=== PATIENT | male | born 1995 | race American Indian/Alaskan Native ===

== ENCOUNTER 2017-07-09 17:29 | Emergency (ER) | payer SELFPAY ==
[2017-07-09] MEDS ORDERED: ZITHROMAX PO ONE (22:20)
[2017-07-09] MEDS ORDERED: XYLOCAINE 1% MPF 5 mL INFILTRATI ONE (22:20)
[2017-07-09] MEDS ORDERED: ROCEPHIN IM ONE (22:20)
--- NOTE | 2017-07-09 22:26 | Emergency Department Report ---
ED Male HPI - General Chief complaint: Urogenital-Male Stated complaint: STD CHECK UP Time Seen by Provider: 07/09/17 22:19 Source: patient Mode of arrival: Ambulatory Limitations: No Limitations - History of Present Illness Initial comments: pt is a 22 y/o aam with nmh hx who presents for std exposure pt endorses that he has bumps on his perineum after having unprotected sex 5 days ago pt endorse penile itching and tingling pt denies fever no chills n/v Onset/Timin -: days(s) Location: penis Radiation: none Severity: moderate Severity scale (0 -10): 3 Quality: other (itching burning ) Consistency: constant Improves with: none Worsens with: urination, palpation new sexual partner discharge, rash. denies: swelling, mass, urinary retention, blood in urine, dysuria, fever, nausea/vomiting, incontinence - Related Data Sexually active: Yes Previous Rx's Medication Instructions Recorded Last Taken Type Ibuprofen [Motrin] 800 mg PO Q8H PRN #20 tablet 10/22/14 Unknown Rx Doxycycline [Vibramycin CAP] 100 mg PO Q12HR #20 capsule 07/09/17 Unknown Rx Valacyclovir HCl [Valtrex] 1,000 mg PO BID #20 tab 07/09/17 Unknown Rx Allergies Allergy/AdvReac Type Severity Reaction Status Date / Time No Known Allergies Allergy Verified 07/09/17 17:57 ED Review of Systems ROS: Stated complaint: STD CHECK UP Other details as noted in HPI Constitutional: denies: chills, fever Eyes: denies: eye pain, eye discharge, vision change ENT: denies: ear pain, throat pain Respiratory: denies: cough, shortness of breath, wheezing Cardiovascular: denies: chest pain, palpitations Endocrine: no symptoms reported Gastrointestinal: denies: abdominal pain, nausea, diarrhea Genitourinary: other (rash and itching penile ). denies: testicular pain, testicular mass Musculoskeletal: denies: back pain, joint swelling, arthralgia Skin: denies: rash, lesions Neurological: denies: headache, weakness, paresthesias Psychiatric: denies: anxiety, depression Hematological/Lymphatic: denies: easy bleeding, easy bruising ED Past Medical Hx - Past Medical History Previous Medical History?: No - Surgical History Past Surgical History?: No - Social History Smoking Status: Never Smoker Substance Use Type: None - Medications Home Medications: Home Medications Medication Instructions Recorded Confirmed Last Taken Type Ibuprofen [Motrin] 800 mg PO Q8H PRN #20 tablet 10/22/14 Unknown Rx Doxycycline [Vibramycin CAP] 100 mg PO Q12HR #20 capsule 07/09/17 Unknown Rx Valacyclovir HCl [Valtrex] 1,000 mg PO BID #20 tab 07/09/17 Unknown Rx ED Physical Exam - General Limitations: No Limitations General appearance: alert, in no apparent distress - Head Head exam: Present: atraumatic, normocephalic - Eye Eye exam: Present: normal appearance - ENT ENT exam: Present: mucous membranes moist - Neck Neck exam: Present: normal inspection - Respiratory Respiratory exam: Present: normal lung sounds bilaterally. Absent: respiratory distress - Cardiovascular Cardiovascular Exam: Present: regular rate, normal rhythm. Absent: systolic murmur, diastolic murmur, rubs, gallop - GI/Abdominal GI/Abdominal exam: Present: soft, normal bowel sounds - Rectal Rectal exam: Present: other (papular rash ). Absent: hemorrhoids, tenderness - exam: Present: circumcision, other. Absent: testicular tenderness, urethral discharge, scrotal swelling, vertical testicular lie External exam: Present: normal external exam. Absent: erythema, swelling, lesions, lacerations, ecchymosis, bleeding - Extremities Exam Extremities exam: Present: normal inspection, full ROM, tenderness, normal capillary refill - Back Exam Back exam: Present: normal inspection - Neurological Exam Neurological exam: Present: alert, oriented X3 - Psychiatric Psychiatric exam: Present: normal affect, normal mood - Skin Skin exam: Present: warm, dry, intact, normal color. Absent: rash ED Course Vital Signs 07/09/17 17:57 Temperature 98 F Pulse Rate 62 Respiratory 18 Rate Blood Pressure 138/92 O2 Sat by Pulse 100 Oximetry ED Medical Decision Making - Medical Decision Making pt is a 22 y/o aam with nmh hx who presents for std exposure pt endorses that he has bumps on his perineum after having unprotected sex 5 days ago pt endorse penile itching and tingling pt denies fever no chills n/v exam: penis no rash no lesion no discharge no erythema no lymph, rectum small papular rash no open lesion mild erythema given symptom initiated after unprotected sexual contact will tx for STD exposure pt given rx. for valtrax 1gm po bid x 10 days will fill if rash persists past next 3 days , pt directed to presents to health depart for hiv screening pt verbalized agreement and understanding with discharge plan Critical care attestation.: If time is entered above; I have spent that time in minutes in the direct care of this critically ill patient, excluding procedure time. ED Disposition Clinical Impression: STD exposure Disposition: DC-01 TO HOME OR SELFCARE Is pt being admited?: No Does the pt Need Aspirin: No Condition: Good Instructions: Sexually Transmitted Diseases (ED) Additional Instructions: start valtrax if rash not resolved in 3 days or spreads prior, folow up with health department for hiv screening. Prescriptions: Doxycycline [Vibramycin CAP] 100 mg PO Q12HR #20 capsule Valacyclovir HCl [Valtrex] 1,000 mg PO BID #20 tab Referrals: PRIMARY CARE, [Primary Care Provider] - 3-5 Days Forms: Work/School Release Form(ED) Time of Disposition: 22:39
[2017-07-09] MEDS ORDERED: MOTRIN ONE (23:15)
[2017-07-09] MEDS ORDERED: MOTRIN PO ONE (23:48)
[2017-07-10 02:00] VITALS: BP 128/62
== END 2017-07-09 23:06 | disposition home or self-care (01) ==
LOC: ED 17:29
DX: N48.89 Other specified disorders of penis (principal); Z20.2 Contact with and (suspected) exposure to infections with a predominantly sexual mode of transmission
CPT/HCPCS: 99282; J0696

== ENCOUNTER 2017-07-10 09:54 | Emergency (ER) | payer SELFPAY ==
[2017-07-10] MEDS ORDERED: TYLENOL PO ONE (10:25)
[2017-07-10] MEDS ORDERED: TYLENOL ONE (10:29)
[2017-07-10 10:43] LABS: Bilirubin,Urine NEG (Negative); Blood,Urine NEG (Negative); Ketones,Urine NEG (Negative); Leukocyte Esterase,Urine NEG (Negative); Nitrite,Urine NEG (Negative); Protein,Urine <15 mg/dL mg/dL (Negative); Urobilinogen,Urine < 2.0 mg/dL (<2.0)
[2017-07-10 19:26] VITALS: BP 117/80
== END 2017-07-10 19:26 | disposition left against medical advice (07) ==
LOC: ED 09:54
DX: R10.30 Lower abdominal pain, unspecified (principal); Z53.21 Procedure and treatment not carried out due to patient leaving prior to being seen by health care provider
CPT/HCPCS: 81001

== ENCOUNTER 2018-06-12 00:14 | Emergency (ER) | payer SELFPAY ==
[2018-06-12 00:19] VITALS: BP 146/103
--- NOTE | 2018-06-12 03:53 | Emergency Department Report ---
ED Rash HPI - HPI Chief Complaint: Skin Rash Stated Complaint: RASH IN GROIN Time Seen by Provider: 06/12/18 03:23 Duration: 3 Days Location: Other (" I have jock it" ) Rash Symptoms: Yes Itching, No Facial Swelling, No Tongue/Oral Swelling, No Breathing Difficulties, No Choking Sensation, No Wheezing/Dyspnea, No Blistering , No Fever Severity: moderate ED Review of Systems ROS: Stated complaint: RASH IN GROIN Other details as noted in HPI Constitutional: denies: chills, fever Eyes: denies: eye pain, eye discharge, vision change ENT: denies: ear pain, throat pain Respiratory: denies: cough, shortness of breath, wheezing Cardiovascular: denies: chest pain, palpitations Endocrine: no symptoms reported Gastrointestinal: denies: abdominal pain, nausea, diarrhea Genitourinary: denies: urgency, dysuria Musculoskeletal: denies: back pain, joint swelling, arthralgia Skin: denies: rash, lesions Neurological: denies: weakness, numbness, paresthesias, abnormal gait, vertigo Psychiatric: denies: anxiety, depression Hematological/Lymphatic: denies: easy bleeding, easy bruising ED Past Medical Hx - Past Medical History Previous Medical History?: No - Surgical History Past Surgical History?: No - Social History Smoking Status: Never Smoker Substance Use Type: None - Medications Home Medications: Home Medications Medication Instructions Recorded Confirmed Last Taken Type Ibuprofen [Motrin] 800 mg PO Q8H PRN #20 tablet 10/22/14 Unknown Rx Doxycycline [Vibramycin CAP] 100 mg PO Q12HR #20 capsule 07/09/17 Unknown Rx Valacyclovir HCl [Valtrex] 1,000 mg PO BID #20 tab 07/09/17 Unknown Rx Terbinafine 1% [Lamisil At] 2 applicatio TP QDAY #1 tube 06/12/18 Unknown Rx diphenhydrAMINE [Benadryl CAP] 25 mg PO Q8HR PRN #30 capsule 06/12/18 Unknown Rx Rash Exam - Exam General: Vital signs noted. No distress. Alert and acting appropriately. HEENT: No Periorbital Edema, No Conjuctival Injection, No Chemosis, No Perioral Edema, No Tongue Edema, No Uvular Edema, No Compromised Airway, No Drooling Lungs: Yes Good Air Exchange, Yes Cough, Yes Labored Respirations, No Wheezes, No Ronchi, No Stridor, No Retractions, No Use of Accessory Muscles, No Other Abnormal Lung Sounds Heart: Yes Regular, No Murmur Skin: Yes Erythema, No Urticarial Rash, No Maculopapular Rash, No Morbilliform rash, No Bulla(e), No Excoriations, No Weeping, No Tenderness, No Edema, No Encrustations, No Other Other: Positive: Abdomen Normal, Neurologic Normal, Musculoskeletal Normal ED Course Vital Signs 06/12/18 00:18 Temperature 98.7 F Pulse Rate 100 H Respiratory 18 Rate Blood Pressure 146/103 O2 Sat by Pulse 95 Oximetry ED Medical Decision Making - Radiology Data Radiology results: pending, report reviewed - Medical Decision Making this it tinea cruis will tx for same with lamisil oint bid x 14 days pt will follow up with [facility] in 2-3 days. Critical care attestation.: If time is entered above; I have spent that time in minutes in the direct care of this critically ill patient, excluding procedure time. ED Disposition Clinical Impression: Tinea cruris Disposition: DC-01 TO HOME OR SELFCARE Is pt being admited?: No Does the pt Need Aspirin: No Condition: Good Prescriptions: diphenhydrAMINE [Benadryl CAP] 25 mg PO Q8HR PRN #30 capsule PRN Reason: Itching Terbinafine 1% [Lamisil At] 2 applicatio TP QDAY #1 tube Referrals: PRIMARY CARE, [Primary Care Provider] - 3-5 Days Time of Disposition: 03:53
== END 2018-06-12 04:06 | disposition home or self-care (01) ==
LOC: ED 00:14
DX: B35.6 Tinea cruris (principal)
CPT/HCPCS: 99282